=== PATIENT | female | born 1965 | race Caucasian/White ===

== ENCOUNTER 2017-01-26 09:52 | Emergency (ER) | payer BC ==
[~2017-01-26] VITALS: Ht 205.7 cm; Wt 83.9 kg
[~2017-01-26 09:52] MED LIST: DAYPRO600 M1 PO; HYDROCODONE BIT1 T11 PO; METFORMIN HCL500 MG PO; METFORMIN1000 MG PO; Motrin,Rufen800 MG PO; NO DAILY MEDS; ROBAXIN750 MG PO; ZITHROMAX250 MG PO; ZYRTEC10 M2 PO
[2017-01-26] MEDS ORDERED: CYCLOBENZAPRINE10 MG PO (11:40)
[2017-01-26] MEDS ORDERED: Motrin,Rufen800 MG PO (11:40)
== END 2017-01-26 11:45 | disposition home or self-care (01) ==
LOC: ED 09:52
DX: S33.5XXA Sprain of ligaments of lumbar spine, initial encounter (principal); F17.200 Nicotine dependence, unspecified, uncomplicated; Z88.6 Allergy status to analgesic agent; X58.XXXA Exposure to other specified factors, initial encounter; Y93.89 Activity, other specified; Y92.89 Other specified places as the place of occurrence of the external cause; Y99.8 Other external cause status

== ENCOUNTER 2017-03-17 10:22 | Emergency (ER) | payer BC ==
[~2017-03-17] VITALS: Ht 154.9 cm; Wt 81.6 kg
[~2017-03-17 10:22] MED LIST changes: +CYCLOBENZAPRINE10 MG PO
[2017-03-17] MEDS ORDERED: PREDNISONE10 MG PO (10:29)
== END 2017-03-17 10:41 | disposition home or self-care (01) ==
LOC: ED 10:22
DX: L30.9 Dermatitis, unspecified (principal); F17.200 Nicotine dependence, unspecified, uncomplicated; Z88.6 Allergy status to analgesic agent

== ENCOUNTER 2017-07-30 13:58 | Emergency (ER) | payer BC ==
[~2017-07-30] VITALS: Ht 154.9 cm; Wt 70.3 kg
[~2017-07-30 13:58] MED LIST changes: +PREDNISONE10 MG PO
[2017-07-30] MEDS ORDERED: ELIMITE 5%60 GM T (14:36)
== END 2017-07-30 14:53 | disposition home or self-care (01) ==
LOC: ED 13:58
DX: B86 Scabies (principal); F17.200 Nicotine dependence, unspecified, uncomplicated; Z88.6 Allergy status to analgesic agent

== ENCOUNTER 2017-11-28 08:10 | Emergency (ER) | payer BC ==
[~2017-11-28] VITALS: Ht 154.9 cm; Wt 68.0 kg
[~2017-11-28 08:10] MED LIST changes: +ELIMITE 5%60 GM T
[2017-11-28] MEDS ORDERED: CYCLOBENZAPRINE10 MG PO ×2 (08:32→09:20)
== END 2017-11-28 08:51 | disposition home or self-care (01) ==
LOC: ED 08:10
DX: M54.6 Pain in thoracic spine (principal); M25.512 Pain in left shoulder; F17.200 Nicotine dependence, unspecified, uncomplicated; Z98.890 Other specified postprocedural states; Z79.899 Other long term (current) drug therapy; Z88.5 Allergy status to narcotic agent

== ENCOUNTER → 2018-12-14 | Emergency (ER) | payer SELFPAY ==
[~2018-12-14] VITALS: Ht 154.9 cm; Wt 77.1 kg
--- NOTE | ~2018-12-14 | EKG ---
[place], [place] ELECTROCARDIOGRAM REPORT NAME: HEMALATHA SOARES UNIT #: [id number] ROOM: DOCTOR: EPIPHANY DRAFT REPORT BIRTHDATE: [birth year] [facility] Test Date: 2018-12-14 Test Time: 08:25:24 Pat Name: HEMALATHA SOARES Department: ER Room: Gender: F Building Surveyor: : 1965 Requested By: ANGIE BRUNO Order Number: [id number] Reading MD: Audi Espinosa MD Measurements Intervals [place] Rate: 88 P: 41 DC: 137 QRS: 55 QRSD: 97 T: 59 QT: 368 QTc: 446 Interpretive Statements Sinus rhythm Borderline low voltage, extremity leads Probable anteroseptal infarct, old Electronically Signed On 12-17-2018 6:59:21 PDT by Audi Espinosa MD CM:EKGRPT:ELECTROCARDIOGRAM REPORT [id number] ANGIE GARCIA DRAFT REPORT ANGIE BRUNO DO
[2018-12-14 08:25] LABS: BILIRUBIN NEGATIVE (NEGATIVE); BLOOD NEGATIVE (NEGATIVE); CLARITY CLEAR (CLEAR); COLOR YELLOW (YELLOW); GLUCOSE 3+ (NEGATIVE); KETONE NEGATIVE (NEGATIVE); LEUKO ESTERASE NEGATIVE (NEGATIVE); NITRITE NEGATIVE (NEGATIVE); PH 5.5 (5.0-9.0); SPECIFIC GRAVITY 1.015 (1.005-1.030); UROBILINOGEN 0.2 E.U./dl (0.2-1.0)
[2018-12-14 08:35] LABS: BASO # 0.1 10*3/uL (0.0-0.1); BASO % 0.6 % (0.0-1.0); EOS # 0.3 10*3/uL (0.0-0.4); EOS % 2.1 % (1.0-4.0); HEMATOCRIT 45.8 % (37.0-47.0); HEMOGLOBIN 15.6 g/dl (12.0-16.0); LYMPH # 3.6 10*3/uL (1.3-4.4); LYMPH % 29.7 % (27.0-41.0); MEAN CELL VOLUME 90.7 fl (81.0-99.0); MEAN CORPUSCULAR HGB 30.9 pg (27.0-31.0); MEAN CORPUSCULAR HGB CONC 34.1 g/dl (33.0-37.0); MEAN PLATELET VOLUME 9.5 fl (9.6-12.3); MONO # 0.9 10*3/uL (0.1-1.0); MONO % 7.5 % (3.0-9.0); NEUT # 7.2 10*3/uL (2.3-7.9); NEUT % 59.6 % (47.0-73.0); PLATELET COUNT AUTOMATED 400 10*3/uL (130-400); RED BLOOD COUNT 5.05 10*6/uL (4.10-5.10); RED CELL DISTRI WIDTH 13.2 % (0-14.5)
[2018-12-14 08:44] LABS: BACTERIA TRACE; RBC 0-2 rbc/hpf (0-2); WBC 0-2 wbc/hpf (0-5)
[2018-12-14 08:53] LABS: ALBUMIN 3.4 gm/dl (3.1-4.5); ALKALINE PHOSPHATASE 107 U/L (45-117); BUN 9 mg/dl (7-24); CHLORIDE 102 mmol/L (98-107); CREATININE 0.76 mg/dL (0.55-1.02); LIPASE 59 U/L (73-393); SGOT/AST 5 IU/L (3-35); SGPT/ALT 14 U/L (12-78); SODIUM 135 mmol/L (136-145); TOTAL PROTEIN 7.8 gm/dL (6.4-8.2)
[2018-12-14 09:04] LABS: BETA-HCG, QUANT < 1.0 mIU/mL (1-3); TROPONIN I < 0.015 ng/ml (<0.045)
== END ==
LOC: ED 07:59
PROVIDERS: Internal Medicine
DX: R19.09 Other intra-abdominal and pelvic swelling, mass and lump (principal); R10.11 Right upper quadrant pain; E11.9 Type 2 diabetes mellitus without complications; Z88.5 Allergy status to narcotic agent; Z79.899 Other long term (current) drug therapy

== ENCOUNTER → 2019-04-11 | Outpatient (CLI) | payer SELFPAY | END | disposition home or self-care (01) | LOC: LAB 15:47 | DX: C56.1 Malignant neoplasm of right ovary (principal) ==